=== PATIENT | male | born 1995 | race Caucasian/White ===

== ENCOUNTER 2019-04-01 12:39 | Emergency (ER) | payer OTHER, SELFPAY ==
[2019-04-01 12:40] VITALS: BP 141/76; PULSE 59; RESP 16; TEMP 36.6; O2SAT 100; BMI 23.8
--- NOTE | 2019-04-01 12:55 | ED.VISSUMM ---
- ER Visit Summary Date of Service: 04/01/19 Chief Complaint: Wrist laceration History of Present Illness: The patient is a 23 M who presents the emergency department with a laceration to the right wrist. This was sustained at work when he incised it on metal while bringing out a mop. Unknown last tetanus. Physical Examination: Afebrile vital signs stable There is a 1.5 cm linear laceration over the medial aspect of the right wrist. No active bleeding. Neurovascular intact. Emergency Department Course and Treatment: Locally anesthetized using 1% lidocaine and closed using 2 simple interrupted 4-0 Ethilon sutures. Tetanus is updated with Adacel. Wound care discussed with patient stitches will need to be removed in 7 to 10 days. Impression: 1. 0.5 cm laceration to the right wrist with repair 2. Tetanus update This note was generated with [employer] dictation software. It may contain incorrect words, spelling, and punctuation that were not noted in review of the chart prior to signing ED Disposition - Plan for ED Patient: Disposition: Home or Assisted Living Instructions: LACERATION, Extrem (Suture, Staple or Tape) Referrals: [facility] [NON-STAFF] - (in 7-10 days for suture removal)
[2019-04-01] MEDS: Diphth,Pertuss(Acell),Tet Vac 0.5 ML Vial IM (13:25)
== END 2019-04-01 13:29 | disposition home or self-care (01) ==
LOC: ED 13:24
PROVIDERS: Emergency Provider Emergency Medicine
DX: S61.511A Laceration without foreign body of right wrist, initial encounter (principal); W27.8XXA Contact with other nonpowered hand tool, initial encounter; Y93.89 Activity, other specified; Y92.89 Other specified places as the place of occurrence of the external cause; Y99.0 Civilian activity done for income or pay; Z23 Encounter for immunization
CPT/HCPCS: 12001; 90471; 90715; 99283

== ENCOUNTER 2022-06-14 08:10 | Emergency (ER) | payer OTHER, SELFPAY ==
[2022-06-14 08:11] VITALS: BP 139/88; PULSE 70; RESP 18; TEMP 36.4; O2SAT 100; BMI 25.8
--- NOTE | 2022-06-14 08:41 | EX.ED.UPPERE ---
HPI History of Present Illness Chief Complaint: Upper Extremity Injury Narrative Narrative: 26-year-old male who denies significant past medical history, [id number], presents with injury to his left shoulder that he sustained last evening around 10 PM, almost 11 hours ago. He states that he was climbing up boxes to look for another box, and his left hand went into a space that he thought was support. He fell downward, onto his feet, but his left arm whipped up in a quick fashion. He now has pain in his posterior left shoulder. He has pain that is worse with movement especially reaching overhead. He denies hitting his head or loss of consciousness. No other symptoms. He went home last night, and thought it would get better, but is been worsening. He denies other injury. [facility] Medical History (Updated 06/14/22 @ 09:40 by Clark Esparza MD) Hypertension Home Medications NK 04/01/19 [History Last Taken Unknown] Allergy/AdvReac Type Severity Reaction Status Date / Time No Known Allergies Allergy Verified 06/14/22 08:14 Social History Smoking Status: Current every day smoker tobacco type: cigarettes alcohol intake: never ROS ROS ED ROS Narrative Constitutional: No fever, no chills. HEENT: No sore throat. No neck pain. No loss of vision. No rhinorrhea. Cardiovascular: No chest pain. No palpitations. No pedal edema. Respiratory: No cough, no shortness of breath. Abdominal: No abdominal pain. No nausea. No vomiting. Genitourinary: No dysuria. No hematuria. Musculoskeletal: No myalgias. Left shoulder pain, worse with movement, especially reaching overhead and behind. Neurologic: No headaches. No dizziness. No lightheadedness. Skin: No rash. No change in color. Psychiatric: No depression. No anxiety. EXAM Physical Exam Narrative Exam Narrative: Afebrile. Vital signs noted. HEENT: Normocephalic. Atraumatic. PERRL, EOMI. Neck soft and supple. No point tenderness or step off. Cardiovascular: Regular rate and rhythm. No murmurs, rubs, or gallops appreciated. Respiratory: No tachypnea. Lungs clear to auscultation bilaterally. Gastrointestinal: Abdomen soft, nontender, with normoactive bowel sounds. No rebound or guarding. Neurological: Awake. Alert. Nonfocal, nonlateralizing. Skin: No rash. Normal color. No pallor. Musculoskeletal: No pedal edema. Full range of motion extremities except left shoulder which may have minor limitation secondary to pain. No clinical evidence of dislocation. Neurovascular intact distally with palpable radial pulse on left. Diffuse tenderness to palpation especially posterior musculature. Able to raise arms above head. Const Vital Signs: 06/14/22 08:11 Temperature 97.5 F L Temperature Source Temporal Pulse Rate 70 Respiratory Rate 18 Blood Pressure 139/88 H Blood Pressure Mean 105 Pulse Ox 100 Oxygen Delivery Method Room Air MDM MDM MDM Narrative Medical decision making narrative: His injury was last evening. I will obtain x-rays of the left shoulder. I do feel that this is more of a ligamentous injury versus muscular strain, or a combination of both. X-rays of the left shoulder interpreted by myself show no evidence of acute fracture or dislocation. At this point in time, I feel he can be discharged safely home with follow-up to his [facility] provider of his choice or the [facility] clinic. He will be written a note for limited use of his left arm and limited reaching above his shoulder on the left as I feel he has more of a left shoulder strain and sprain. Return instructions were reviewed. Disposition is discharged home in stable condition. Discharge Plan Triage Chief Complaint: Upper Extremity Injury ED Provider: Clark Esparza Dx/Rx/DC Orders Clinical Impression: Fall, Sprain of left shoulder, Left shoulder strain Instructions: ED Shoulder Sprain, ED Muscle Strain, Extremity Prescriptions: No Action NK Primary Care Provider: Care Physician,No Primary Referrals: Care Physician,No Primary [Primary Care Provider] - [facility] [Non-Staff] - 3-5 Days Disposition Disposition: Home, Self Care
--- NOTE | 2022-06-14 08:55 | RAD_ITS ---
STUDY: X-RAY - LEFT SHOULDER REASON FOR EXAM: Male, 26 years old. Trauma, pain TECHNIQUE: 4 view(s) of the shoulder. COMPARISON: None. FINDINGS: Normal glenohumeral articulation. Normal acromioclavicular joint. Normal acromion. Normal humeral head and visualized proximal humerus. The soft tissue structures are unremarkable. Normal visualized pulmonary apex. RAD/Shoulder min 2 Views IMPRESSION: Normal x-ray examination of the shoulder. Electronically Signed: Jaswant Mcgregor MD at 9:22 EST ,
== END 2022-06-14 09:53 | disposition home or self-care (01) ==
PROVIDERS: Emergency Provider Emergency Medicine; Visit Provider Emergency Medicine
DX: S46.912A Strain of unspecified muscle, fascia and tendon at shoulder and upper arm level, left arm, initial encounter (principal); I10 Essential (primary) hypertension; W17.89XA Other fall from one level to another, initial encounter
CPT/HCPCS: 73030; 99282